=== PATIENT | female | born 1950 | race Caucasian/White ===

== ENCOUNTER 2020-03-18 15:14 | Inpatient (IN) | payer MEDICARE, SELFPAY ==
--- NOTE | ~2020-03-18 | CT_ITS ---
EXAMINATION: CT brain wo con DATE: 03/20/2020 00:36 INDICATION: Altered mental state. Hypoxia. TECHNIQUE: Computed tomography (CT) of the head was performed without intravenous contrast. The mA wa s adjusted according to patient size. Iterative reconstruction technique was employed. Exam dose: 60 5.33 mGy-cm total exam DLP. COMPARISON: None FINDINGS: No intracranial mass lesion or hemorrhage or cerebrovascular accident is evident. No midlin e shift or mass effect. There are bilateral carotid siphon internal carotid artery calcifications. There is nonspecific dimin ished attenuation of the cerebral white matter, likely due to chronic small vessel ischemic changes. No subdural or epidural hematoma is evident. No fracture or bone destruction of the cranial vault is evident. Included paranasal sinuses and masto id air cells are normally developed and aerated. IMPRESSION: Cerebral atherosclerosis and chronic small vessel ischemic changes of the cerebral white matter No acute intracranial finding Reviewed, dictated and finalized at [facility]. Reviewed, dictated and finalized at [facility]. IMPRESSION: Cerebral atherosclerosis and chronic small vessel ischemic changes of the cereb ral white matter No acute intracranial finding
--- NOTE | ~2020-03-18 | CT_ITS ---
EXAMINATION: CTA chest PE protocol DATE: 03/20/2020 00:39 INDICATION: Shortness of breath. Hypoxia. TECHNIQUE: Computed tomography angiography (CTA) of the chest was performed with 100 mL Omnipaque-350 intravenous contrast timed to evaluate the pulmonary arteries. Coronal maximum intensity projection 3D-reconstructions were created by the technologist. Automated exposure control and iterative reconst ruction technique were employed. Exam dose: 910.87 mGy-cm total exam DLP. COMPARISON: 03/18/2020 portable AP chest FINDINGS: There is diagnostic contrast enhancement of the pulmonary arteries and no evidence of pulmo nary embolism. No hilar or mediastinal mass lesion or lymphadenopathy. There is atherosclerotic calcification of the thoracic aorta, great vessels and coronary arteries. No thoracic aortic aneurysm or dissection is evident. There are scattered areas of discoid atelectasis or scarring in the lingula, middle lobe and both low er lobes. No pulmonary consolidation or pulmonary mass lesion is evident. No suspicious osteolytic or osteoblastic lesions. IMPRESSION: No evidence of pulmonary embolism Scattered areas of discoid atelectasis or scarring in the lingula, middle lobe and both lower lobes Reviewed, dictated and finalized at [facility]. Reviewed, dictated and finalized at [facility].
--- NOTE | ~2020-03-18 | CT_ITS ---
EXAMINATION: CT abdomen pelvis wo con DATE: 03/20/2020 00:37 INDICATION: Abdominal pain, persistent diarrhea TECHNIQUE: Computed tomography (CT) of the abdomen and pelvis was performed with 100 cc Omnipaque 350 intravenous contrast. Automated exposure control and iterative reconstruction technique were employe d. Exam dose: 1224.58 mGy-cm total exam DLP. COMPARISON: 10/24/2014 complete abdominal ultrasound examination 11/05/2014 hepatobiliary scan FINDINGS: Innumerable gallstones are noted. No gallbladder wall thickening or pericholecystic fluid o r fat stranding. No bile duct or pancreatic duct dilatation. No hepatic, splenic, pancreatic, and adrenal or renal space-occupying mass lesion is evident on this limited noncontrast examination. There is extensive calcification of the abdominal aorta and iliac arteries but no aneurysm. No intrap eritoneal or retroperitoneal or pelvic mass lesion or adenopathy or ascites. Small fat-containing umbilical hernia. There is diverticulosis of the sigmoid colon; no CT evidence of diverticulitis. No bowel obstruction, bowel wall thickening, pneumatosis or intraperitoneal free air is evident. There is some edema of the abdominal wall. There is diffuse osteopenia. There is prominent degenerative disc disease at L1-2, L2-3 and particula rly L3-4. No suspicious osteolytic or osteoblastic lesions are noted. IMPRESSION: Cholelithiasis Sigmoid diverticulosis Reviewed, dictated and finalized at [facility]. Reviewed, dictated and finalized at [facility].
--- NOTE | ~2020-03-18 | XR_ITS ---
XR chest 1V portable 03/18/2020 19:11 Indication: Shortness of breath Procedure: AP portable chest Comparison: No prior studies for comparison. Findings: Cardiomegaly. No focal air space disease, pulmonary edema, pleural effusion or suspected pn eumothorax. The lungs are hyperinflated which is consistent with, but not diagnostic of chronic obstr uctive pulmonary disease. Impression: 1: No acute cardiopulmonary disease. Reviewed, dictated and finalized at [facility]. Impression: 1: No acute cardiopulmonary disease.
[2020-03-18 15:38] VITALS: BP 135/85; PULSE 65; RESP 18; TEMP 36.6; O2SAT 86
[2020-03-18] MEDS: SODIUM CHLORIDE 0.9% IV 1,000 ML 150 ML IV CONT (16:42)
[2020-03-18 16:50] LABS: Basophils Percent Auto 0.3 % (0.2-1.2); Eosinophils Percent Auto 0.5 % (0-4.4); Hemoglobin 15.5 g/dL (12.0-15.0); Immature Granulocyte Absolute 0.05 K/mm3 (0.00-0.031); Immature Granulocyte Percent A 0.6 % (0-0.5); Lymphocytes Absolute Auto 2.14 K/mm3 (0.9-3.2); Lymphocytes Percent Auto 24.7 % (18.3-44.2); Mean Corpuscular HGB Conc 32.3 g/dl (32-36); Mean Corpuscular Hemoglobin 31.2 pg (26-34); Mean Corpuscular Volume 96.6 fl (80-100); Mean Platelet Volume 10.1 fl (7.4-10.4); Monocytes Absolute Auto 1.3 K/mm3 (0.1-0.6); Monocytes Percent Auto 14.7 % (2.6-8.5); Neutrophils Absolute Auto 5.1 K/mm3 (1.3-6.7); Neutrophils Percent Auto 59.2 % (45.5-73.1); Nucleated Red Blood Cells Perc 0.2 % (0.0-0.2); Platelet Count Result 305 k/mm3 (150-375); Red Blood Count 4.97 M/mm3 (4.2-5.4); Red Cell Distribution Width 14.9 % (11.5-14.5); White Blood Count 8.7 K/mm3 (4.5-10.0)
[2020-03-18 16:52] LABS: Add Urine Microscopic? NO; Appearance Urine Clear (Clear); Bilirubin Urine Negative (Negative); Blood Urine Negative (Negative); Color Urine Straw (Yellow); Glucose Urine UA Negative (Negative); Ketones Urine Negative (Negative); Leukocyte Esterase Ur Negative LEU/UL (Negative); Nitrate Urine Negative (Negative); Protein Urine Negative (Negative); Specific Grav Ur 1.008 (1.001-1.035); Urobilinogen Urine Negative mg/dL (<2.0)
[2020-03-18 17:04] LABS: Alanine Aminotransferase 22 U/L (4-35); Albumin Level 3.6 g/dL (3.5-5.1); Alkaline Phosphatase 64 U/L (38-126); Anion Gap 9 mmol/L (8-16); Aspartate Amino Transferase 26 U/L (14-36); Bilirubin,Total 0.6 mg/dL (0.2-1.3); Blood Urea Nitrogen 31 mg/dL (7-17); Calcium 8.6 mg/dL (8.4-10.2); Carbon Dioxide 34 mmol/L (22-30); Chloride 91 mmol/L (98-107); Estimated CRCL calculation 42 ml/min; Estimated Glomerular Filt Rate 49; Glucose 120 mg/dL (65-105); Lipase 16 U/L (23-300); Potassium 2.5 mmol/L (3.4-5.0); Sodium 134 mmol/L (137-145)
[2020-03-18] MEDS: POTASSIUM CHLORIDE 20 MEQ PACKET (FOR LIQUID) 40 MEQ PO (17:43)
[2020-03-18 17:50] VITALS: BP 116/74; PULSE 66; RESP 18; O2SAT 81
[2020-03-18 18:43] LABS: Alveolar/Arterial O2 Gradient 31.6 mmHg; Base Excess ABG 4.5 mEq/l (+/-2.0); Carboxyhemoglobin 2.9 % THb (0-2.0); Fractional Inspired Oxygen 21 %; HCO3 ABG 32.5 mEq/l (22.0-26.0); PO2 FiO2 Ratio Arterial Blood 2.06 %; Reduced Hemoglobin 22.1 %THb (0-5.0); Total Hemoglobin 15.2 g/dL (12.0-18.0); pH ABG 7.334 (7.350-7.450)
[2020-03-18 18:44] LABS: PCO2 ABG 62.5 mmHg (35.0-45.0); PO2 ABG 43.3 mmHg (80.0-100.0)
[2020-03-18 18:45] LABS: Device ROOM AIR; Modified Allen's Test Pass; Oxygen Saturation ABG 74.7 % (95.0-100.0); Site Drawn RIGHT RADIAL
[2020-03-18 19:00] VITALS: BP 112/78; PULSE 60; RESP 16; O2SAT 90
[2020-03-18 19:25] VITALS: BP 123/61; PULSE 60; RESP 18; TEMP 36.6; O2SAT 92
--- NOTE | 2020-03-18 19:28 | ED.GENADULT ---
HPI - General Adult General Chief complaint: Nausea/Vomiting/Diarrhea Stated complaint: nausea, diarrhea, not feeling well Time Seen by Provider: 03/18/20 16:01 Source: patient and family Mode of arrival: ambulatory Limitations: no limitations History of Present Illness HPI narrative: 69-year-old with a history of hypertension, hyperlipidemia was sent by her primary doctor with the complaints of confusion, weakness, nausea, vomiting and diarrhea for past few days. Patient states that she was given Zofran by Dr. Leslie which helped for short duration of time however she still continues to be nauseated. She denies any fever or chills. Has occasional cough which is nonproductive. No history of chest pain. She denies any recent antibiotic usage. Has multiple episodes of watery diarrhea. Onset (ago): day(s) (4) Severity: moderate Associated symptoms: cough Related Data Home Medications Medication Instructions Recorded Confirmed alprazolam 03/18/20 03/18/20 atorvastatin 03/18/20 furosemide 03/18/20 hydralazine 03/18/20 metoprolol tartrate 03/18/20 ondansetron 03/18/20 quinapril mg 03/18/20 varenicline [Chantix Starting ea 03/18/20 Month Box] Allergies Allergy/AdvReac Type Severity Reaction Status Date / Time codeine Allergy Unknown GAMBINO Verified 03/18/20 19:18 Sulfa (Sulfonamide Allergy Unknown Unknown Verified 03/18/20 19:18 Antibiotics) Review of Systems Review of Systems: All systems reviewed & are unremarkable except as noted in HPI and below Constitutional: Constitutional: Reports as per HPI Eyes: Eyes: Reports as per HPI ENT: Reports as per HPI Cardiovascular: Cardiovascular: Reports no additional cardiovascular complaints Respiratory: Respiratory: Reports no additional respiratory complaints Gastrointestinal: Gastrointestinal: Reports no additional gastrointestinal complaints Musculoskeletal: Musculoskeletal: Reports no additional musculoskeletal complaints Psychiatric: Psychiatric: Reports no additional psychiatric complaints PMFSH Social History Social History Gender identity (if verbalized by the patient): Female Exam Narrative: Exam Narrative: GENERAL: Well-appearing, well-nourished, and in no acute distress. HEAD: Normocephalic, atraumatic. EYES: PERRLA and EOMI. ENT: Nares clear, . Mucous membranes moist. NECK: Supple. CHEST: Mild wheeze. No respiratory distress. HEART: Regular rate and rhythm. No murmur heard. Normal peripheral pulses. ABDOMEN: Soft, nontender, nondistended, normal active bowel sounds. EXTREMITIES: Normal range of motion. No edema. SKIN: Warm, dry, no rash. NEURO: No focal deficits. Alert and oriented x3. PSYCH: Normal mood and affect. Course Course Emergency Course: Inform patient about her lab work, patient states that she is feeling great however she was found to be hypoxic with O2 saturations of 86% on room air. And she was placed on 2 L oxygen patient states that she feels much better. Informed her that she needs to be admitted as she does not have oxygen at home. Discussed with Dr. Leslie. Vital Signs Vital signs: Vital Signs Temperature 36.6 C 03/18/20 15:38 Pulse Rate 65 03/18/20 15:38 Respiratory Rate 18 03/18/20 15:38 Blood Pressure 135/85 03/18/20 15:38 Pulse Oximetry 86 L 03/18/20 15:38 Temperature 36.6 C 03/18/20 19:25 Pulse Rate 60 03/18/20 19:25 Respiratory Rate 18 03/18/20 19:25 Blood Pressure 123/61 03/18/20 19:25 Pulse Oximetry 92 03/18/20 19:25 Medical Decision Making Vital Signs Vital Signs: Vital Signs Temperature 36.6 C 03/18/20 15:38 Pulse Rate 65 03/18/20 15:38 Respiratory Rate 18 03/18/20 15:38 Blood Pressure 135/85 03/18/20 15:38 Pulse Oximetry 86 L 03/18/20 15:38 Temperature 36.6 C 03/18/20 19:25 Pulse Rate 60 03/18/20 19:25 Respiratory Rate 18 03/18/20 19:25 Blood Pressure 123/61 03/18/20 19:25 Pulse Oximetry 92 10/2
--- NOTE | 2020-03-18 19:46 | ECG_ITS ---
Measurements Intervals [place] Rate: 58 P: 69 TN: 184 QRS: 93 QRSD: 85 T: 66 QT: 393 QTc: 386 Interpretive Statements SINUS BRADYCARDIA RIGHT AXIS DEVIATION BORDERLINE R WAVE PROGRESSION, ANTERIOR LEADS BORDERLINE T WAVE ABNORMALITY- DIFFUSE LEADS BASELINE ARTIFACT- I, II, III, AVR, AVL, AVF, V1-V6 BORDERLINE ECG Electronically Signed On 03-18-2020 20:22:49 CDT by Jono Olguin D.O.
[2020-03-18 21:00] VITALS: BP 128/55; PULSE 57; RESP 20; TEMP 36.3; O2SAT 91; BMI 39.4
--- NOTE | 2020-03-18 21:49 | PC.NURSE ---
This patient, Windy Melchor, was admitted to 3 Med Surg Room 320-01. Patient/family oriented to hospital policies and general routines including ID bracelet, bed and alarms, visiting hours, pain management, procedures, bathroom and other care routines, personal items, smoking policy, room service/diet, and visiting hours. Information on how to activate the Rapid Response Team has been discussed. Patient/Family are encouraged to report perceived risks to care and to ask questions if they do not understand what they are told or what they should do.
[2020-03-18] MEDS: LACTATED RINGERS 1,000 ML 125 ML IV CONT (22:37)
[2020-03-18] MEDS: methylPREDNISolone SOD SUCC 125 MG VIAL 60 MG IV PUSH (23:49)
[2020-03-19] VITALS (10 sets, daily range): BP systolic 98–145; BP diastolic 56–102; PULSE 60–82; RESP 18–20; TEMP 36.5–36.9; O2SAT 89–96
--- NOTE | 2020-03-19 00:37 | PM.IMHP ---
H&P: HPI History of Present Illness Date/Time: 03/19/20 00:37 Chief complaint: COPD/Gastroenteritis Narrative: This is a pleasant 69 year old female with known HTN, COPD, and hyperlipidemia who was sent to the hospital for evaluation by her PCP for nausea, vomiting, diarrhea and weakness over the past 2 weeks. The patient reports that he symptoms started after she received a flu vaccine. The patient denies any shortness of breath, fevers, chills, cough, sore throat, chest pain, abdominal pain, dysuria, hematuria, or wheezing. She denies any recent antibiotic usage. Today she has had 7 episodes of wattery diarrhea. Routine labs obtained yesterday demonstrated hypokalemia and ABG showed hypercapnia and hypoxemia. The patient was placed on supplemental oxygen and swabbed for Coronavirus. NO other complaints. Review of Systems Review of Systems: All systems reviewed & are unremarkable except as noted in HPI and below PMFSH Past Medical History Medical History HTN (hypertension) with goal to be determined Hyperlipidemia Social History Social History Smoking packs per day: 0.5 Smoking cigarettes per day: 10.0 Years smoked: 48 Smoking pack-years: 24.00 Smoking status: Current every day smoker Tobacco type: cigarettes Additional smoking assessment comments: patient states she wishes to quit today 03/18 Alcohol intake: never Substance use: never Gender identity (if verbalized by the patient): Female Spiritual care concerns: Yes (would like to see ) Comments Past surgical and family medical history reviewed and noncontributory. Meds Home Medications and Allergies Home Medications Medication Instructions Recorded Confirmed Type alprazolam 1 mg PO TID PRN 03/18/20 03/18/20 History atorvastatin 10 mg PO DAILY 03/18/20 03/18/20 History diltiazem HCl 180 mg PO DAILY 03/18/20 03/18/20 History furosemide 40 mg PO DAILY 03/18/20 03/18/20 History hydralazine 25 mg PO BID 03/18/20 03/18/20 History metoprolol tartrate 50 mg PO BID 03/18/20 03/18/20 History quinapril 40 mg PO BID 03/18/20 03/18/20 History albuterol sulfate [Proventil HFA] 2 puff INHALATION Q4HR PRN #1 g 03/20/20 Rx magnesium oxide 200 mg PO Q12HR #60 tablet 03/20/20 Rx potassium chloride [K-Tab] 20 meq PO DAILY@0800 #20 tablet 03/20/20 Rx prednisone 10 mg PO DAILY #30 tablet 03/20/20 Rx Allergies Allergy/AdvReac Type Severity Reaction Status Date / Time codeine Allergy Unknown Itching Verified 03/19/20 00:16 Sulfa (Sulfonamide Allergy Unknown Redness of Verified 03/19/20 00:16 Antibiotics) Skin Vital Signs Vital Signs - 24 hr 03/18/20 15:38 03/18/20 17:50 03/18/20 19:00 Temperature 36.6 C Pulse Rate 65 66 60 Respiratory Rate 18 18 16 Blood Pressure 135/85 116/74 112/78 Pulse Oximetry 86 L 81 L 90 03/18/20 19:25 03/18/20 21:00 Temperature 36.6 C 36.3 C L Pulse Rate 60 57 L Respiratory Rate 18 20 Blood Pressure 123/61 128/55 L Pulse Oximetry 92 91 Exam Const: General: cooperative, no acute distress, alert and awake Nutritional Appearance: obese morbidly obese Orientation/consciousness: patient oriented x3 HENMT: Head: normal to inspection General nose exam: Normal external nose present Face and sinus: normal facial exam Mouth: Yes Normal oral and palatal mucosa present and Yes oropharynx normal Eyes: Pupils: Equal, round and reactive pupils present EOM: EOMs intact bilaterally Neck: Neck: supple and no JVD Thyroid: thyroid normal Lymphatic: lymphadenopathy not noted Resp: Effort & Inspection: normal respiratory effort Auscultation: diminished lung sounds Cardio: Rate: regular rate Rhythm: regular rhythm Heart sounds: no murmurs GI: Inspection: normal to inspection Auscultation: normal bowel sounds Skin: General skin exam: normal color and no rashes or lesions noted Neuro: Gene
[2020-03-19 01:17] LABS: Anion Gap 5 mmol/L (8-16); Blood Urea Nitrogen 24 mg/dL (7-17); Calcium 7.9 mg/dL (8.4-10.2); Carbon Dioxide 36 mmol/L (22-30); Chloride 96 mmol/L (98-107); Estimated CRCL calculation 51 ml/min; Estimated Glomerular Filt Rate > 60; Glucose 101 mg/dL (65-105); Potassium 2.6 mmol/L (3.4-5.0); Sodium 137 mmol/L (137-145)
[2020-03-19] MEDS: ALPRAZolam (*CRX) 0.5 MG TABLET 1 MG PO ×2 (02:22→23:04)
[2020-03-19] MEDS: methylPREDNISolone SOD SUCC 125 MG VIAL 60 MG IV PUSH ×2 (05:29→17:06)
[2020-03-19 06:29] LABS: Basophils Percent Auto 0.2 % (0.2-1.2); Hematocrit 44.6 % (37.0-47.0); Hemoglobin 14.2 g/dL (12.0-15.0); Immature Granulocyte Absolute 0.04 K/mm3 (0.00-0.031); Immature Granulocyte Percent A 0.6 % (0-0.5); Lymphocytes Absolute Auto 0.97 K/mm3 (0.9-3.2); Lymphocytes Percent Auto 15.5 % (18.3-44.2); Mean Corpuscular HGB Conc 31.8 g/dl (32-36); Mean Corpuscular Hemoglobin 30.8 pg (26-34); Mean Corpuscular Volume 96.7 fl (80-100); Mean Platelet Volume 10.2 fl (7.4-10.4); Monocytes Absolute Auto 0.2 K/mm3 (0.1-0.6); Monocytes Percent Auto 2.9 % (2.6-8.5); Neutrophils Absolute Auto 5.1 K/mm3 (1.3-6.7); Neutrophils Percent Auto 80.8 % (45.5-73.1); Platelet Count Result 264 k/mm3 (150-375); Red Blood Count 4.61 M/mm3 (4.2-5.4); Red Cell Distribution Width 14.7 % (11.5-14.5); White Blood Count 6.3 K/mm3 (4.5-10.0)
[2020-03-19 06:37] LABS: Anion Gap 4 mmol/L (8-16); Blood Urea Nitrogen 22 mg/dL (7-17); Carbon Dioxide 36 mmol/L (22-30); Chloride 96 mmol/L (98-107); Estimated CRCL calculation 57 ml/min; Estimated Glomerular Filt Rate > 60; Glucose 167 mg/dL (65-105); Potassium 3.3 mmol/L (3.4-5.0); Sodium 136 mmol/L (137-145)
[2020-03-19 06:38] LABS: Magnesium 1.6 mg/dL (1.6-2.3)
[2020-03-19 07:12] LABS: Alveolar/Arterial O2 Gradient 93.1 mmHg; Fractional Inspired Oxygen 32 %; HCO3 ABG 28.2 mEq/l (22.0-26.0); Oxygen Content ABG 18.7 %vol (16.0-22.0); Oxygen Saturation ABG 92.7 % (95.0-100.0); PCO2 ABG 55.2 mmHg (35.0-45.0); PO2 ABG 70.5 mmHg (80.0-100.0); Total Hemoglobin 14.6 g/dL (12.0-18.0); pH ABG 7.326 (7.350-7.450)
[2020-03-19 07:13] LABS: Device NASAL CANNULA; Site Drawn LEFT BRACHIAL
[2020-03-19] MEDS: ATORVASTATIN 10 MG TABLET PO (08:43)
[2020-03-19] MEDS: POTASSIUM CHLORIDE 20 MEQ TABLET.ER PO (08:44)
[2020-03-19] MEDS: FUROSEMIDE 40 MG TABLET PO (08:44)
[2020-03-19] MEDS: POTASSIUM CHLORIDE 20 MEQ TABLET 40 MEQ PO (08:46)
[2020-03-19] MEDS: LACTATED RINGERS 1,000 ML 125 ML IV CONT (08:47)
[2020-03-19] MEDS: MAGNESIUM OXIDE 200 MG TABLET PO ×2 (08:49→22:42)
[2020-03-19 14:10] LABS: SARS-CoV-2 RNA PCR Negative
--- NOTE | 2020-03-19 16:57 | PM.IMPN ---
Progress Note: A&P Assessment and Plan (1) Acute diarrhea: Code(s): R19.7 - Diarrhea, unspecified Status: Acute Assessment and Plan: -----could be viral but the patient continues to have significant diarrhea. I will obtain a CT abdomen pelvis as well as a stool culture. Depending on these results, will go from there. No history of recent antibiotic use. COVID-19 negative (2) Hypoxemia: Code(s): R09.02 - Hypoxemia Status: Acute Assessment and Plan: -----patient was hypoxic on admission for unclear reasons, chest x-ray was normal. No tachycardia but metoprolol could be masking this. Consider PE, order CTA. ABG showed significant hypoxia (3) Suspected 2019 novel coronavirus infection: Code(s): Z20.828 - Contact with and (suspected) exposure to other viral communicable diseases Status: Acute Assessment and Plan: -----ruled out. (4) COPD (chronic obstructive pulmonary disease): Qualifiers: COPD type: unspecified COPD Qualified Code(s): J44.9 - Chronic obstructive pulmonary disease, unspecified Code(s): J44.9 - Chronic obstructive pulmonary disease, unspecified Status: Chronic Assessment and Plan: -----Continue bronchodilators. (5) Hypokalemia: Code(s): E87.6 - Hypokalemia Status: Acute Assessment and Plan: -----improving, 3.3 today. Likely d/t persistent diarrhea. (6) Hyperlipidemia: Qualifiers: Hyperlipidemia type: unspecified Qualified Code(s): E78.5 - Hyperlipidemia, unspecified Code(s): E78.5 - Hyperlipidemia, unspecified Status: Chronic Assessment and Plan: -----Continue statin therapy. (7) HTN (hypertension) with goal to be determined: Code(s): I10 - Essential (primary) hypertension Status: Chronic Assessment and Plan: ----last bp 135/89. bp meds held today due to hypotension, consider restarting tomorrow. (8) Acute respiratory failure with hypoxia: Code(s): J96.01 - Acute respiratory failure with hypoxia Status: Acute Assessment and Plan: -----see above. Time Spent With Patient Time with patient: 25 - 35 minutes Subjective Date/time seen: 03/19/20 16:57 Interval history: Pt is a 69-year-old female here for nausea, vomiting and diarrhea as well as weakness. Patient was seen today and states she continues to have diarrhea. Attack states that she has had multiple episodes but she also urinates with them so we are having trouble obtaining a stool sample. Pt denies fevers, chills, constipation, chest pain, or shortness of breath. Review of Systems Review of Systems: All systems reviewed & are unremarkable except as noted in HPI and below Exam Narrative: Exam Narrative: General: Well developed well nourished patient in NAD HEENT: normocephalic Neck: supple Neuro: Alert and oriented x4 CV:RRR Resp:CTA Abd: Soft, non distended. Slight pain to palpation to all quadrants. Positive bowel sounds Extremities: No swelling, erythema, or pain to palpation. Objective Data Vital Signs Vital Signs: Vital Signs - 24 hr 03/18/20 17:50 03/18/20 19:00 03/18/20 19:25 Temperature 97.9 F Pulse Rate 66 60 60 Respiratory Rate 18 16 18 Blood Pressure 116/74 112/78 123/61 Pulse Oximetry 81 L 90 92 03/18/20 21:00 03/19/20 00:00 03/19/20 04:00 Temperature 97.3 F L 97.7 F 97.8 F Pulse Rate 57 L 65 70 Respiratory Rate 20 20 20 Blood Pressure 128/55 L 121/63 125/56 L Pulse Oximetry 91 95 94 03/19/20 08:00 03/19/20 08:45 03/19/20 12:00 Temperature 98.2 F 98.2 F Pulse Rate 68 76 68 Respiratory Rate 18 20 18 Blood Pressure 98/75 L 142/102 H Pulse Oximetry 96 93 95 Intake/Output Intake/Output: Intake & Output 03/16/20 03/17/20 03/18/20 03/19/20 23:59 23:59 23:59 23:59 Intake Total 1000 1980 Output Total 700 Balance 1000 1280 Meds/Results Medica
[2020-03-19] MEDS: hydrALAZINE HCL 25 MG TABLET PO (17:06)
[2020-03-19] MEDS: METOPROLOL TARTRATE 50 MG TAB PO (22:42)
[2020-03-20] VITALS: PULSE 65
[2020-03-20] MEDS: LACTATED RINGERS 1,000 ML 75 ML IV CONT (02:31)
[2020-03-20 04:00] VITALS: PULSE 63
[2020-03-20] MEDS: methylPREDNISolone SOD SUCC 125 MG VIAL 60 MG IV PUSH (05:14)
[2020-03-20 05:50] VITALS: BP 126/69; PULSE 57; RESP 18; TEMP 36.9; O2SAT 96
[2020-03-20 08:00] VITALS: PULSE 64
--- NOTE | 2020-03-20 08:50 | PM.DS ---
DS: Admitting Diagnosis Admitting Diagnosis Admitting Diagnosis: COPD/Gastroenteritis DS: Discharge Diagnosis Discharge Diagnosis (1) Acute diarrhea: Code(s): R19.7 - Diarrhea, unspecified Status: Acute Assessment and Plan: -----likely viral diarrhea. Patient was unable to produce a stool sample as she kept urinating with her stool sample. The day of discharge she did not have any bowel Movements and only had 2 the day prior. Her white blood cell count went up but was thought to be due to steroids that she was receiving. Abdominal CT did not show any acute pathology. She was COVID-19 negative. Since she improved, she was discharged to follow-up with her primary care physician and if this continues may need a colonoscopy. (2) Hypoxemia: Code(s): R09.02 - Hypoxemia Status: Acute Assessment and Plan: -----patient was hypoxic on admission for unclear reasons, chest x-ray was normal. CTA neg for PE. Could be due to bronchospasm and pt improved with steroids and she was sent home on a ronald and given an albuterol inhaler. (3) Suspected 2019 novel coronavirus infection: Code(s): Z20.828 - Contact with and (suspected) exposure to other viral communicable diseases Status: Acute Assessment and Plan: -----ruled out. (4) COPD (chronic obstructive pulmonary disease): Qualifiers: COPD type: unspecified COPD Qualified Code(s): J44.9 - Chronic obstructive pulmonary disease, unspecified Code(s): J44.9 - Chronic obstructive pulmonary disease, unspecified Status: Chronic Assessment and Plan: -----Continue bronchodilators. (5) Hypokalemia: Code(s): E87.6 - Hypokalemia Status: Acute Assessment and Plan: -----improving since admission. Likely d/t persistent diarrhea. I have given her a a rx for potassium and she is to f/u with pcp and get a bmp to assess her potassium level next week. (6) Hyperlipidemia: Qualifiers: Hyperlipidemia type: unspecified Qualified Code(s): E78.5 - Hyperlipidemia, unspecified Code(s): E78.5 - Hyperlipidemia, unspecified Status: Chronic Assessment and Plan: -----Continue statin therapy. (7) HTN (hypertension) with goal to be determined: Code(s): I10 - Essential (primary) hypertension Status: Chronic Assessment and Plan: ----last bp 126/69. bp meds held today due to hypotension, consider restarting tomorrow. (8) Acute respiratory failure with hypoxia: Code(s): J96.01 - Acute respiratory failure with hypoxia Status: Acute Assessment and Plan: -----see above. DS: Summary Hospital Course Reason for hospitalization: Diarrhea Hospital Course: Patient is 69-year-old female who presented emergency room for weakness, nausea, vomiting and diarrhea. No history of antibiotic use. Vitals in the ER were temperature 36.6? C, pulse 65, respiratory rate 18, blood pressure 135/85, pulse ox 86 on room air. Initial white blood cell count normal 8.7. BMP showed abnormalities, potassium 2.5. Patient was admitted to the hospitalist service and observed. As stated above, we are unable to obtain a stool sample since the patient no longer had diarrhea the day of discharge and prior to that it was contaminated. Her potassium improved with supplementation and she no longer had any nausea or vomiting. She was hypoxic on admission for unclear reasons. Her COVID-19 was negative and CTA was negative for PE. She was started on steroids which improved her breathing and she was able to be weaned off O2. She was sent home on a steroid taper. Overall, the patient had improvement and is to follow-up with her primary care physician. She was educated about the worrisome signs and symptoms to come back to the emergency room for was discharged stable condition. I spoke to her about plan of care. Status at D
[2020-03-20 08:53] LABS: Hematocrit 45.2 % (37.0-47.0); Hemoglobin 14.7 g/dL (12.0-15.0); Mean Corpuscular HGB Conc 32.5 g/dl (32-36); Mean Corpuscular Hemoglobin 30.5 pg (26-34); Mean Corpuscular Volume 93.8 fl (80-100); Mean Platelet Volume 10.1 fl (7.4-10.4); Platelet Count Result 292 k/mm3 (150-375); Red Blood Count 4.82 M/mm3 (4.2-5.4); Red Cell Distribution Width 15.1 % (11.5-14.5); White Blood Count 16.7 K/mm3 (4.5-10.0)
[2020-03-20] MEDS: hydrALAZINE HCL 25 MG TABLET PO (08:58)
[2020-03-20 08:59] VITALS: PULSE 64
[2020-03-20] MEDS: METOPROLOL TARTRATE 50 MG TAB PO (08:59)
[2020-03-20] MEDS: MAGNESIUM OXIDE 200 MG TABLET PO (08:59)
[2020-03-20] MEDS: ATORVASTATIN 10 MG TABLET PO (08:59)
[2020-03-20 09:08] LABS: Anion Gap 7 mmol/L (8-16); Blood Urea Nitrogen 16 mg/dL (7-17); Calcium 8.7 mg/dL (8.4-10.2); Carbon Dioxide 35 mmol/L (22-30); Chloride 95 mmol/L (98-107); Estimated CRCL calculation 75 ml/min; Estimated Glomerular Filt Rate > 60; Glucose 130 mg/dL (65-105); Magnesium 1.7 mg/dL (1.6-2.3); Potassium 3.3 mmol/L (3.4-5.0); Sodium 137 mmol/L (137-145)
[2020-03-20] MEDS: POTASSIUM CHLORIDE 20 MEQ TABLET PO (09:42)
[2020-03-20] MEDS: POTASSIUM CHLORIDE 20 MEQ TABLET.ER PO (10:00)
== END 2020-03-20 10:20 | disposition home or self-care (01) | DRG 391 ==
LOC: ANHED 19:33 → ANH3MEDSUR 23:00
PROVIDERS: Family Medicine; Admitting Provider Internal Medicine; Emergency Provider Family Medicine; PCP Family Medicine; Visit Provider Physician Assistant
DX: A08.4 Viral intestinal infection, unspecified (principal); J96.01 Acute respiratory failure with hypoxia; Z20.828 Contact with and (suspected) exposure to other viral communicable diseases; J44.9 Chronic obstructive pulmonary disease, unspecified; E78.5 Hyperlipidemia, unspecified; I10 Essential (primary) hypertension; E87.6 Hypokalemia; F17.210 Nicotine dependence, cigarettes, uncomplicated; E66.01 Morbid (severe) obesity due to excess calories; Z68.39 Body mass index [BMI] 39.0-39.9, adult
CPT/HCPCS: 36415; 36600; 70450; 71045; 71275; 74176; 80048; 80053; 81003; 82375; 82805; 83050; 83690; 83735; 85025; 85027; 87635; 93005; 96360; 96361; 99285; A9270; C9803; J2930; J3480; J7030; J7120; Q9967; U0003

== ENCOUNTER 2020-09-25 09:35 | Outpatient (CLI) | payer MEDICARE, SELFPAY ==
--- NOTE | ~2020-09-25 | US_ITS ---
EXAMINATION: US venous doppler [facility] DATE: 09/25/2020 10:26 INDICATION: Left lower limb swelling TECHNIQUE: Thomas scale images without and with compression and Doppler images of the left lower extrem ity veins were obtained. COMPARISON: None FINDINGS: The left common femoral vein, profunda femoral vein, femoral vein, popliteal vein, peroneal trunk, posterior tibial veins, and greater saphenous vein are patent. 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 IMPRESSION: 1. Patent left lower extremity veins. No evidence of deep venous thrombosis. 2. Diez's cyst. Reviewed, dictated and finalized at location [facility].
== END 2020-09-25 09:36 | disposition home or self-care (01) ==
PROVIDERS: PCP Student in an Organized Health Care Education/Training Program; Visit Provider Student in an Organized Health Care Education/Training Program
DX: R22.42 Localized swelling, mass and lump, left lower limb (principal); M71.22 Synovial cyst of popliteal space [Baker], left knee
CPT/HCPCS: 93971

== ENCOUNTER 2022-01-07 12:49 | Outpatient (CLI) | payer MEDICARE, SELFPAY ==
--- NOTE | ~2022-01-07 | DEXA_ITS ---
Bone Density Report Name: ROCHELLE BYERS Age: 71 Sex: Female Ethnicity: White Date of : 1950 Indication: postmenopausal; screening for osteoporosis; height loss; inflammatory bowel disease; hysterectomy; Referring Provider: PAT, LEON Study: Bone densitometry was performed. Exam Date: January 07, 2022 Accession number: [id number] Bone Density: Region BMD T-score Z-score Classification AP Spine(L1-L4) 1.060 0.1 2.4 Normal Femoral Neck (Left) 0.616 -2.1 -0.2 Osteopenia Total Hip (Left) 0.797 -1.2 0.4 Osteopenia Femoral Neck (Right) 0.694 -1.4 0.5 Osteopenia Total Hip (Right) 0.767 -1.4 0.2 Osteopenia Total Hip Mean 0.782 -1.3 0.3 Osteopenia World Health Organization criteria for BMD impression classify patients as: Normal (T-score at or above -1.0), Osteopenia (T-score between -1.0 and -2.5), or Osteoporosis (T-score at or below -2.5). 10-year Fracture Risk(1): Major Osteoporotic Fracture 11% Hip Fracture 2.3% Reported Risk Factors: [place] (), Neck BMD=0.616, BMI=40.0 (1) FRAX(R) Version 3.08. Fracture probability calculated for an untreated patient. Fracture probability may be lower if the patient has received treatment. Clinical Information Provided by Patient: Has used the following medications: Vitamin D, Calcium Has the following medical conditions: Inflammatory bowel diseases, Hysterectomy Patient maximum height was 61 Menopause Age: 30 No regular weight bearing exercise Drinks caffeinated beverages Onset of menses at age 12 Number of children 2 Impression: The patient has low bone mass, based on the Left Femoral Neck T-score. The patient has an estimated ten-year risk of hip fracture of 2.3% and an estimated ten-year risk of major fracture of 11%, based on the WHO FRAX algorithm. Discussion: BONE DENSITY IS LOW AT ONE OR MORE SKELETAL SITES. This patient's lowest T-score is low at one or more skeletal sites. It meets the World Health Organization's (WHO) criteria for ?low bone mass? (T-score between -1.0 and -2.5). The patient's 10-year risk of fracture as calculated by FRAX is less than the threshold where pharmacological therapy is recommended by the National Osteoporosis Foundation (NOF). However, all treatment decisions require clinical judgment and consideration of individual patient factors, including patient preferences, comorbidities, previous drug use, risk factors not captured in the FRAX model (e.g., frailty, falls, vitamin D deficiency, increased bone turnover, interval significant decline in bone density) and possible under or overestimation of fracture risk by FRAX. The patient should follow a healthful lifestyle (good nutrition with adequate calcium and vitamin D, and appropriate weight-bearing exercise). Follow-Up: Consider r
== END 2022-01-07 12:50 | disposition home or self-care (01) ==
PROVIDERS: PCP Student in an Organized Health Care Education/Training Program; Visit Provider Student in an Organized Health Care Education/Training Program
DX: Z78.0 Asymptomatic menopausal state (principal); M85.89 Other specified disorders of bone density and structure, multiple sites
CPT/HCPCS: 77080

== ENCOUNTER 2022-07-29 08:07 | Outpatient (CLI) | payer MEDICARE, SELFPAY ==
--- NOTE | ~2022-07-29 | US_ITS ---
US abdomen limited DATE: 07/29/2022 08:53 INDICATION: Abnormal CT scan: Cholelithiasis TECHNIQUE: Real-time imaging of liver, pancreas, gallbladder COMPARISON: 03/20/2020 CT abdomen pelvis FINDINGS: No hepatic or pancreatic space-occupying mass lesion is detected. Normal hepatopedal portal venous flow direction. There are multiple gallbladder filling defects with prominent shadowing consistent with cholelithiasi s. No abnormal gallbladder wall thickening or pericholecystic fluid. Negative sonographic Solomon's si gn. The common bile duct measures 4 mm, normal. IMPRESSION: Cholelithiasis Reviewed, dictated and finalized at [facility]. Reviewed, dictated and finalized at location B. TH SERVICE COORDINATOR IMPRESSION: Cholelithiasis
== END 2022-07-29 08:08 | disposition home or self-care (01) ==
PROVIDERS: PCP Student in an Organized Health Care Education/Training Program; Visit Provider Student in an Organized Health Care Education/Training Program
DX: R93.2 Abnormal findings on diagnostic imaging of liver and biliary tract (principal); K80.20 Calculus of gallbladder without cholecystitis without obstruction
CPT/HCPCS: 76705

== ENCOUNTER 2022-08-18 09:45 | Outpatient (RCR) | payer MEDICARE, SELFPAY ==
--- NOTE | 2022-07-30 13:24 | OTOPDC ---
Assessment and note entered by CLYDE Sylvester/Nataliya, CHT Evaluation Information Assessment Status Evaluation Diagnosis COPD, weakness Subjective Information Patient was hospitalized end of May for about 2 weeks with shortness of breath and hypoxia. She was on a ventilator x1 day. She discharged to inpatient rehab for 2 weeks. She discharged home where she lives with her . At home she takes care of all of her own ADLs independently. She is no longer using a walker around the house. Reported Pain Level Pain Score 0: Self Report Assessment OT Clinical Summary Patient referred to outpatient OT after hospitalization and rehab stay for respiratory failure COPD. Since discharging from rehab she has been independent with ADLs at home. She currently has intact functional strength and balance for ADLs. No skilled OT indicated at this time. Plan of Care OT Services Indicated No
--- NOTE | 2022-07-30 15:46 | STOPEVDC ---
Assessment and note entered by Katarina Juarez SWITCHING CLERK Thank you for referring Windy Melchor to [facility].? An evaluation has been completed. No further treatment is needed. Evaluation Information Assessment Status Evaluation Assessment Status Evaluation Diagnosis Cognitive Issues Onset 06/21/22 Subjective Information Patient had been hospitalized at [facility] 06/21/22 for pneumonia, COPD, where she remained until 05/30 when she was advanced to a regular room. Patient reports she had never been diagnosed with COPD prior to this hospitalization. She entered [facility] in [place], [place], for two weeks where she did have Speech Therapy for medication management and bill paying. She stated that she feels she is coming to this facility just for a check-up for her cognitive skills to assess progress as she feels she no longer requires skilled Speech Therapy. Reported Pain Level Pain Score 0: Self Report Pain Score 0: Self Report Assessment ST Clinical Summary COGNITIVE EVALUATION The patient was seen for a follow-up cognitive evaluation after being discharged from inpatient acute care facility to further assess progress of her cognitive skills. Patient's skills fell within normal limits for immediate and recent memory, recall of general information, organization/word fluency, and auditory processing and retention. Patient and report no complaints with communication at home and therefore patient does not require additional Speech Therapy at this time. Patient and voice understanding of recommendation to discharge. Thank you for this referral. Plan of Care ST Services Indicated No
--- NOTE | 2022-07-30 16:38 | PTOPEVAL1 ---
Assessment and note entered by Joel Saunders, PT Evaluation Information Assessment Status Evaluation Diagnosis decreased endurance Onset about a month ago Subjective Information Patient reports that the last few days of May she was not having any energy and having trouble getting up and down her back stairs. Was in the hospital for two weeks and then at [facility] for two weeks and then has been home for two weeks. The patient and report for the most part she is doing okay. Still using a walker and a tub transfer bench at home. Reported Pain Level Pain Score 0: Self Report Pain Score 0: Self Report Pain Score 0: Self Report Assessment PT Clinical Summary Windy is a 71 year old female coming in for weakness along with with balance and endurance concerns following a prolonged hospitalization. She has weakness in her hips and inability to walk 6 minutes without a break. She does not appear to need to use her walker. Recommend continued physical therapy to get started on a HEP she can follow along with a walking program. Plan of Care Interventions Electrical Stimulation,Gait Training,Hot Pack/Cold Pack,Manual Therapy,Neuro Re-education,Patient/ Caregiver Education,Therapeutic Activities, Therapeutic Exercise,Ultrasound Other Interventions taping PT Services Indicated Yes Treatment Frequency and 1-2x/wk for 8 visits Duration These treatments will address the objective and functional deficits as defined above. The patient will be advanced safely and appropriately in order for the patient to progress towards his/her prior level of function. Additional exercises will be introduced and as well as a comprehensive home exercise program upon discharge, if needed, ?to ensure carryover of functional gains achieved in the clinic. This treatment plan has been reviewed and agreement upon by the patient.
--- NOTE | 2022-08-07 11:37 | PCPTNOTE ---
Patient called & cancelled scheduled appointment this date due to her brother being on hospice and couldn't make it in today.
--- NOTE | 2022-08-13 09:03 | PCPTNOTE ---
Patient called and canceled due to her brother passing away today.
--- NOTE | 2022-08-27 08:24 | PCPTNOTE ---
Patient called & cancelled scheduled appointment this date due to being in the hospital
--- NOTE | 2022-09-14 09:37 | PCPTNOTE ---
Admitting Provider: Attending Provider: Elvis Ace, DO Patient:Windy Melchor Date of :1950 Patient has not returned for any further treatments since 08/18/2022, therefore she will be discharged at this time. Patient?s initial visit was on 07/30/2022 12:30 and she had a total of 3___ visits. The goals have been not met. Thank you for referring this patient to [facility]. Please review, sign, date and return this discharge summary CATE. I have been updated about the patient's current status and I agree with discharge from the above service at this time. Referring Physician Date
== END 2022-09-14 11:41 | disposition home or self-care (01) ==
LOC: ANHPT 09:45
PROVIDERS: PCP Student in an Organized Health Care Education/Training Program; Visit Provider Student in an Organized Health Care Education/Training Program
DX: J96.02 Acute respiratory failure with hypercapnia (principal)
CPT/HCPCS: 96125; 97110; 97112; 97161; 97165; 97530

== ENCOUNTER 2022-09-30 14:14 | Outpatient (RCR) | payer MEDICARE, SELFPAY ==
--- NOTE | 2022-10-01 07:48 | PTOPEVDC ---
Assessment and note entered by Joel Saunders, PT Thank you for referring Windy Melchor to [facility].? An evaluation has been completed. No further treatment is needed. Evaluation Information Assessment Status Evaluation Diagnosis CHF, acute R ankle pain, sepsis Subjective Information Patient reports the R ankle is not an issue. She is coming here because she was coming here before her brother passed and she got sick. Patient reports she has been consistent with her HEP and that besides getting off the floor she is not having any troubles. Assessment PT Clinical Summary Windy is a 72 year old female coming into the clinic with a diagnosis of CHF, acute R ankle pain , and sepsis. Patient currently not in an acute exacerbation of the CHF, believes her sepsis has been taken care of and no issue with her ankle. Given HEP of lower extremities exercises to address deficits in her hip strength, but do not see reason to have continued physical therapy and patient/ agree. Discharge with HEP Plan of Care PT Services Indicated No Treatment Frequency and discharged from skilled physical therapy. Duration
== END 2022-12-14 07:06 | disposition home or self-care (01) ==
LOC: ANHPT 14:14
PROVIDERS: PCP Student in an Organized Health Care Education/Training Program; Visit Provider Student in an Organized Health Care Education/Training Program
DX: M25.571 Pain in right ankle and joints of right foot (principal); I50.9 Heart failure, unspecified; A41.9 Sepsis, unspecified organism
CPT/HCPCS: 97110; 97161

== ENCOUNTER 2023-03-31 14:00 | Outpatient (RCR) | payer MEDICARE, SELFPAY ==
--- NOTE | 2023-03-03 15:10 | OPREHPOC ---
Outpatient Therapy Plan of Care This is a Multidisciplinary Plan of Care that may contain components documented by all disciplines (PT, OT, and ST.) PT Problem 1 PT Problem #1 Knowledge Deficit PT Goal 1 Goal 1. Patient will perform independent HEP Target Visit 9 PT Problem 2 PT Problem #2 Pain PT Goal 1 Goal 1. Patient will do all ADL's with pain no higher than 4/10 Target Visit 9 PT Problem 3 PT Problem #3 Impaired Functional ADLs PT Goal 1 Goal 1. Patient able to clean without reported limitations 2. Improve 2 minute walk test to at least 400 feet Target Visit 9 PT Problem 4 PT Problem #4 Impaired Strength PT Goal 1 Goal 1. Improve bilateral hip abduction to 4+/5 and pain free to perform ADL's
--- NOTE | 2023-03-03 15:10 | PTOPEVAL1 ---
Assessment and note entered by Abby Cast DPT Evaluation Information Assessment Status Evaluation Subjective Information Pt reports she says she was originally diagnosed with a prolapse but was recently told by her installer metal flooring that she does not have one. Does have a hemorrhoid that has been confirmed by Dr. Stevens. States she has also had a hernia ruled out. Has been having anterior left hip/low abdomen pain. Pain originates from her back and wraps around, no radiation down her leg. Difficulty standing up straight to walk due to the pain and difficulty getting out of bed. Highest pain 8-9/10 and lowest 4-5/10. Denies n/t. Urinates more than 10 times a day due to taking water pills. Usually does not wake up to void. Denies urine leakage and denies pain. BM daily, without pain. Can hold 15 minutes when she needs to void. Pt has been 2 times, vaginal deliveries with forceps for 1 of them and episiotomies. Hysterectomy in 1980, ovaries removed later. Fractured tailbone August of this year. Reports she has had a couple falls and pain has been worsening since then. Not able to do her normal cleaning due to the pain. Able to dress and bathe independently. Pt is retired. Patient goal: decrease pain. States recent x-rays showed arthritis. Reported Pain Level Pain Score 8: Self Report Assessment PT Clinical Summary The patient is presenting to skilled therapy with a several month history of severe left lumbar pain that radiates into her anterior hip. She presents with decreased strength and signs of neural tension which are contributing to her pain and difficulty with normal activities including bed transfers and cleaning. She will highly benefit from therapy to addresss these impairments in order to safely return to prior level of function. Plan of Care Interventions Electrical Stimulation,Gait Training,Hot Pack/Cold Pack,Manual Therapy,Neuro Re-education,Patient/ Caregiver Education,Therapeutic Activities, Therapeutic Exercise PT Services Indicated Yes Treatment Frequency and 2 times a week for 4 weeks Duration These treatments will address the objective and functional deficits as defined above. The patient will be advanced safely and appropriately in order for the patient to progress towards his/her prior level of function. Additional exercises
--- NOTE | 2023-03-15 14:48 | PCPTNOTE ---
Pt. canceled 03/15/23 appointment noting that she was sick.
--- NOTE | 2023-03-31 14:32 | OPREHPOC ---
Outpatient Therapy Plan of Care This is a Multidisciplinary Plan of Care that may contain components documented by all disciplines (PT, OT, and ST.) PT Problem 1 PT Problem #1 Knowledge Deficit PT Goal 1 Goal 1. Patient will perform independent HEP Target Visit 9 Progress Met PT Problem 2 PT Problem #2 Pain PT Goal 1 Goal 1. Patient will do all ADL's with pain no higher than 4/10 Target Visit 9 Progress Not Met PT Problem 3 PT Problem #3 Impaired Functional ADLs PT Goal 1 Goal 1. Patient able to clean without reported limitations 2. Improve 2 minute walk test to at least 400 feet Target Visit 9 Progress Not Met PT Problem 4 PT Problem #4 Impaired Strength PT Goal 1 Goal 1. Improve bilateral hip abduction to 4+/5 and pain free to perform ADL's Progress Not Met
--- NOTE | 2023-03-31 14:32 | PTOPDC ---
Assessment and note entered by Abby Cast DPT Evaluation Information Assessment Status Discharge Subjective Information Highest pain in the last week 8/10 and lowest 3/10 with pain meds. Still not doing most activities due to the pain. Dresses and bathes independently. Significant pain getting out of bed still. Reported Pain Level Pain Score 7: Self Report Assessment PT Clinical Summary The patient has reached a plateau in progress with therapy. She continues to report high pain levels with getting out of bed and doing most activities at home. She displays decreased and painful LE strength testing, tenderness to palpation, and decreased gait speed on the 2 minute walk test compared to her first visit. Due to these findings , plan for discharge at the time. She has been educated to follow up with her physician at this time. Plan of Care PT Services Indicated No
== END 2023-04-06 07:18 | disposition home or self-care (01) ==
LOC: ANHPT 14:00
PROVIDERS: PCP Student in an Organized Health Care Education/Training Program; Visit Provider Student in an Organized Health Care Education/Training Program
DX: N81.10 Cystocele, unspecified (principal)
CPT/HCPCS: 97014; 97110; 97140; 97162; G0283